=== PATIENT | female | born 1965 | race Asian ===

== ENCOUNTER 2016-06-03 07:22 | Emergency (ER) | payer OTHER ==
--- NOTE | 2016-06-03 07:56 | ED NURSING NOTES ---
Clinical Report - Nurses [facility] [address] [place] [address] 06/03/2016 7:25 Patient: SHEILA PABLO TRIAGE Triage time 07:34 Jun 03 2016. Acuity: LEVEL 3. Chief Complaint: REDNESS and PAIN TO LEFT EYE. KUMAR COMA SCORE: Kumar Coma Scale: 15- eyes open spontaneously (4); best verbal response- oriented x 4 (5); best motor response- obeys commands (6). --07:40 Pranav Herrera R.N. 07:34 06/03/16. BP: 151/89. HR: 64. RR: 18. O2 saturation: 99%. Temp: 98.5 F. Pain level now 7/10. --07:40 Pranav Herrera R.N. Weight: 60.7 kg stated. Height/Length: 60 inches Per Patient. BMI: 26.1. --07:38 Pranav Herrera R.N. Medications Claritin Oral 10 mg, daily. Vitamin D Oral (Capsule 2000 unit) 1 capsule, daily. --07:36 Pranav Herrera R.N. Allergies No Known Drug Allergy. --07:36 Pranav Herrera R.N. History Arrived by private vehicle. Historian: patient. Accompanied by family. Primary physician (). This is a recurrent problem and onset was abrupt. Symptoms are constant and still present (started last week got better but worse last night). She did not sustain an injury. ( Was seen last week for eye irritation given artificial tears but the pain is increased today.). She has had eye discomfort and eye irritation. No eye discharge, photophobia, blurred vision or decreased vision. 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 PAST MEDICAL HX: Hypertension. No history of diabetes mellitus. No history of glaucoma or prior eye injury. Immunizations: up-to-date. Denies current . SOCIAL HX: Never smoker. Occasional alcohol use. No drug use. SELF HARM ASSESSMENT: A self harm assessment was performed. The patient answered "no" to the question "Have you recently felt down, depressed, or hopeless?" and "Do you have thoughts of harming or killing yourself?". FALL RISK ASSESSMENT: Fall risk assessment completed. No fall risk identified. NUTRITIONAL RISK ASSESSMENT: The nutritional risk assessment revealed no deficiencies. FUNCTIONAL ASSESSMENT: Functional assessment: no impairments noted. LEARNING NEEDS ASSESSMENT: The learning needs assessment revealed no barriers. ABUSE ASSESSMENT: Abuse assessment: (yes) The patient was asked "Do you feel safe in your home?". SKIN INTEGRITY ASSESSMENT: Skin integrity risk assessment completed. No skin integrity risk identified. --07:40 Pranav Herrera R.N. PROBLEMS: Corneal Abrasion. Immunizations. --07:36 Praanv Herrera R.N. ADDITIONAL SURGERIES: no known surgeries. Interventions ID band on patient. --07:40 Pranav Herrera R.N. PHYSICAL ASSESSMENT Ambulatory to room. ( Getting over a cold still has lingering sinus tenderness and drainage.). GENERAL / NEURO / PSYCH: Alert. Appears in no acute distress. Appears in pain. HEENT: No facial asymmetry noted. Visual acuity with corrective lenses: left eye 20/20; right eye 20/20. Patient wears corrective lenses. Right ear within normal limits. Left ear within normal limits. Mouth inspection within normal limits. Pharynx within normal limits. RESPIRATORY: Respirations not labored. CVS: Capillary refill less than 2 seconds. SKIN: Skin is warm and dry. Normal skin turgor. --07:41 Pranav Herrera R.N. NURSING PROGRESS NOTES The plan of care for this patient has been created. Head of bed elevated (45). Reassurance given. Call light placed in reach. Side rails up x 1. Bed placed in lowest position. Brakes of bed on. --07:41 Pranav Herrera R.N. DISPOSITION / DISCHARGE Departure time: Jun 03 2016. Condition at departure: unchanged. No learning barriers present. Discharge instructions provided and reviewed with the patient. Reviewed warnings. Reviewed medication(s). Treatments reviewed. Reviewed referrals. Patient verbalized understanding. Written instructions provided in Lithuanian. The patient was discharged home and accompanied by spouse. She left the Emergency Department ambulatory and via private vehicle. Spouse driving. --:59 Pranav Herrera R.N. 07:57 06/03/16. BP: 114/81. HR: 86. RR: 18. O2 saturation: 99%. Temp: 98.5 F. Pain level now 11/07. --07:59 Pranav Herrera R.N. Locked/Released at 06/03/2016 19:11 by Pranav Herrera R.N.
--- NOTE | 2016-06-03 07:56 | ED CLINICAL REPORT ---
Clinical Report - Physicians/Mid Levels [facility] [address] [place] [address] 06/03/2016 7:25 Patient: SHEILA PABLO Time Seen: 07:31; initial patient contact. Arrived- By private vehicle. Historian- patient. HISTORY OF PRESENT ILLNESS Chief Complaint: EYE PAIN, REDNESS and IRRITATION. This started last night, involves the left eye, is characterized as moderate in severity and has been constant and is still present. The patient did not sustain an injury. Not injured from contact lenses. No direct trauma to the eyes. No chemical exposure, suspected foreign body in eye or UV light exposure. Eye pain, redness, irritation, discharge and itching. Eyelid swelling. Photophobia. No blurred vision, double vision, decreased vision or loss of vision. REVIEW OF SYSTEMS No fever, sore throat or cough. All systems otherwise negative, except as recorded above. PAST HISTORY PAST MEDICAL HX: Hypertension, corneal abrasion. No history of diabetes mellitus. No history of glaucoma or prior eye injury. Additional Surgeries: no known surgeries. Medications: Claritin Oral 10 mg, daily. Vitamin D Oral (Capsule 2000 unit) 1 capsule, daily. Allergies: No Known Drug Allergy. SOCIAL HISTORY Never smoker. Occasional alcohol use. No drug use. ADDITIONAL NOTES The nursing notes have been reviewed with agreement regarding the chief complaint, PMH and patient medications and allergies. PHYSICAL EXAM Vital Signs: 06/03/2016 07:34 BP: 151/89. HR: 64. RR: 18. O2 saturation: 99%. Temp: 98.5 F. Have been reviewed. Hypertensive. Heart rate normal. Respiratory rate normal. Temperature normal. Oxygen saturation normal. Appearance: Alert. Oriented X3. No acute distress. Eyes: Visual acuity noted- see nurse's notes. Left eyelid everted for examination. Eyelids appear normal to inspection. EOMs intact. Rt Eye: Right eye exam normal. Lt Eye: Injected conjunctiva. Slight exudate present. No foreign body under the eyelid. No injury to the eyelids. No conjunctival foreign body or corneal foreign body. Neck: No lymphadenopathy. Skin: No rash. Neuro: Oriented X 3. PROGRESS AND PROCEDURES Disposition: Discharged home in good condition. Condition: good. CLINICAL IMPRESSION Acute mucopurulent and bacterial conjunctivitis of the left eye. INSTRUCTIONS Your Current Medications: CONTINUE TAKING THE FOLLOWING MEDICATIONS: Claritin Oral : 10 mg daily. Vitamin D Oral : Capsule 2000 unit, 1 capsule daily. Prescription Medications: Polytrim ophthalmic solution: instill 1 drop into the affected eye every 3 hours while awake until symptoms resolve. Dispense ten (10) mL. No refill. Substitution is permissible. Follow-up: Screening today revealed the patient's blood pressure to be in the hypertensive range. The patient should follow up with a primary care provider for blood pressure management. (Electronically signed by Froilan Garrett Dr. 06/03/2016 8:04)
--- NOTE | 2016-06-03 07:56 | ED NURSING NOTES ---
Clinical Report - Nurses [facility] [address] [place] [address] 06/03/2016 7:25 Patient: SHEILA PABLO TRIAGE Triage time 07:34 Jun 03 2016. Acuity: LEVEL 3. Chief Complaint: REDNESS and PAIN TO LEFT EYE. KUMAR COMA SCORE: Kumar Coma Scale: 15- eyes open spontaneously (4); best verbal response- oriented x 4 (5); best motor response- obeys commands (6). --07:40 Pranav Herrera R.N. 07:34 06/03/16. BP: 151/89. HR: 64. RR: 18. O2 saturation: 99%. Temp: 98.5 F. Pain level now 7/10. --07:40 Pranav Herrera R.N. Weight: 60.7 kg stated. Height/Length: 60 inches Per Patient. BMI: 26.1. --07:38 Pranav Herrera R.N. Medications Claritin Oral 10 mg, daily. Vitamin D Oral (Capsule 2000 unit) 1 capsule, daily. --07:36 Pranav Herrera R.N. Allergies No Known Drug Allergy. --07:36 Pranav Herrera R.N. History Arrived by private vehicle. Historian: patient. Accompanied by family. Primary physician (). This is a recurrent problem and onset was abrupt. Symptoms are constant and still present (started last week got better but worse last night). She did not sustain an injury. ( Was seen last week for eye irritation given artificial tears but the pain is increased today.). She has had eye discomfort and eye irritation. No eye discharge, photophobia, blurred vision or decreased vision. 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 PAST MEDICAL HX: Hypertension. No history of diabetes mellitus. No history of glaucoma or prior eye injury. Immunizations: up-to-date. Denies current . SOCIAL HX: Never smoker. Occasional alcohol use. No drug use. SELF HARM ASSESSMENT: A self harm assessment was performed. The patient answered "no" to the question "Have you recently felt down, depressed, or hopeless?" and "Do you have thoughts of harming or killing yourself?". FALL RISK ASSESSMENT: Fall risk assessment completed. No fall risk identified. NUTRITIONAL RISK ASSESSMENT: The nutritional risk assessment revealed no deficiencies. FUNCTIONAL ASSESSMENT: Functional assessment: no impairments noted. LEARNING NEEDS ASSESSMENT: The learning needs assessment revealed no barriers. ABUSE ASSESSMENT: Abuse assessment: (yes) The patient was asked "Do you feel safe in your home?". SKIN INTEGRITY ASSESSMENT: Skin integrity risk assessment completed. No skin integrity risk identified. --07:40 Pranav Herrera R.N. PROBLEMS: Corneal Abrasion. Immunizations. --07:36 Pranav Herrera R.N. ADDITIONAL SURGERIES: no known surgeries. Interventions ID band on patient. --07:40 Pranav Herrera R.N. PHYSICAL ASSESSMENT Ambulatory to room. ( Getting over a cold still has lingering sinus tenderness and drainage.). GENERAL / NEURO / PSYCH: Alert. Appears in no acute distress. Appears in pain. HEENT: No facial asymmetry noted. Visual acuity with corrective lenses: left eye 20/20; right eye 20/20. Patient wears corrective lenses. Right ear within normal limits. Left ear within normal limits. Mouth inspection within normal limits. Pharynx within normal limits. RESPIRATORY: Respirations not labored. CVS: Capillary refill less than 2 seconds. SKIN: Skin is warm and dry. Normal skin turgor. --07:41 Pranav Herrera R.N. NURSING PROGRESS NOTES The plan of care for this patient has been created. Head of bed elevated (45). Reassurance given. Call light placed in reach. Side rails up x 1. Bed placed in lowest position. Brakes of bed on. --07:41 Pranav Herrera R.N. DISPOSITION / DISCHARGE Departure time: Jun 03 2016. Condition at departure: unchanged. No learning barriers present. Discharge instructions provided and reviewed with the patient. Reviewed warnings. Reviewed medication(s). Treatments reviewed. Reviewed referrals. Patient verbalized understanding. Written instructions provided in Jamaican. The patient was discharged home and accompanied by spouse. She left the Emergency Department ambulatory and via private vehicle. Spouse driving. --:59 Pranav Herrera R.N. 07:57 06/03/16. BP: 114/81. HR: 86. RR: 18. O2 saturation: 99%. Temp: 98.5 F. Pain level now 11/07. --07:59 Pranav Herrera R.N. Locked/Released at 06/03/2016 19:11 by Pranav Herrera R.N.
--- NOTE | 2016-06-03 07:56 | ED CLINICAL REPORT ---
Clinical Report - Physicians/Mid Levels [facility] [address] [place] [address] 06/03/2016 7:25 Patient: SHEILA PABLO Time Seen: 07:31; initial patient contact. Arrived- By private vehicle. Historian- patient. HISTORY OF PRESENT ILLNESS Chief Complaint: EYE PAIN, REDNESS and IRRITATION. This started last night, involves the left eye, is characterized as moderate in severity and has been constant and is still present. The patient did not sustain an injury. Not injured from contact lenses. No direct trauma to the eyes. No chemical exposure, suspected foreign body in eye or UV light exposure. Eye pain, redness, irritation, discharge and itching. Eyelid swelling. Photophobia. No blurred vision, double vision, decreased vision or loss of vision. REVIEW OF SYSTEMS No fever, sore throat or cough. All systems otherwise negative, except as recorded above. PAST HISTORY PAST MEDICAL HX: Hypertension, corneal abrasion. No history of diabetes mellitus. No history of glaucoma or prior eye injury. Additional Surgeries: no known surgeries. Medications: Claritin Oral 10 mg, daily. Vitamin D Oral (Capsule 2000 unit) 1 capsule, daily. Allergies: No Known Drug Allergy. SOCIAL HISTORY Never smoker. Occasional alcohol use. No drug use. ADDITIONAL NOTES The nursing notes have been reviewed with agreement regarding the chief complaint, PMH and patient medications and allergies. PHYSICAL EXAM Vital Signs: 06/03/2016 07:34 BP: 151/89. HR: 64. RR: 18. O2 saturation: 99%. Temp: 98.5 F. Have been reviewed. Hypertensive. Heart rate normal. Respiratory rate normal. Temperature normal. Oxygen saturation normal. Appearance: Alert. Oriented X3. No acute distress. Eyes: Visual acuity noted- see nurse's notes. Left eyelid everted for examination. Eyelids appear normal to inspection. EOMs intact. Rt Eye: Right eye exam normal. Lt Eye: Injected conjunctiva. Slight exudate present. No foreign body under the eyelid. No injury to the eyelids. No conjunctival foreign body or corneal foreign body. Neck: No lymphadenopathy. Skin: No rash. Neuro: Oriented X 3. PROGRESS AND PROCEDURES Disposition: Discharged home in good condition. Condition: good. CLINICAL IMPRESSION Acute mucopurulent and bacterial conjunctivitis of the left eye. INSTRUCTIONS Your Current Medications: CONTINUE TAKING THE FOLLOWING MEDICATIONS: Claritin Oral : 10 mg daily. Vitamin D Oral : Capsule 2000 unit, 1 capsule daily. Prescription Medications: Polytrim ophthalmic solution: instill 1 drop into the affected eye every 3 hours while awake until symptoms resolve. Dispense ten (10) mL. No refill. Substitution is permissible. Follow-up: Screening today revealed the patient's blood pressure to be in the hypertensive range. The patient should follow up with a primary care provider for blood pressure management. (Electronically signed by Froilan Garrett Dr. 06/03/2016 8:04)
--- NOTE | 2016-06-03 19:11 | ED MED RECONCILIATION SUMMARY ---
Patient: SHEILA PABLO Medication Reconciliation Report [facility] VisitID: [id number] [address] [place] [address] 50y, F Registration Date/Time: 06/03/2016 Weight: 60.7 kg Height/Length: 60 in. BMI: 26.1 ALLERGIES: No Known Drug Allergy The patient's Home Medications are listed below: CONTINUE TAKING THE FOLLOWING MEDICATIONS: Claritin Oral 10 mg, daily Vitamin D Oral (2000 unit) 1 capsule, daily The source(s) of the original Home Medication information: Not obtained. The following Medications were given to the patient in the Emergency Department: None. The following Medications were prescribed to the patient: Polytrim ophthalmic solution: instill 1 drop into the affected eye every 3 hours while awake until symptoms resolve. Dispense ten (10) mL. No refill. Substitution is permissible. -- Froilan Garrett Dr.
--- NOTE | 2016-06-03 19:11 | ED MAR SUMMARY ---
..... Medication Administration Record [facility] [address] [place] [place], [place] [id number] Patient: SHEILA PABLO Norbert Visit ID: [id number] 50y, F Weight: 60.7 kg Height/Length: 60 in BMI: 26.1 ALLERGIES: No Known Drug Allergy
--- NOTE | 2016-06-03 19:11 | ED DISCHARGE INSTRUCTIONS ---
Patient: SHEILA PABLO General Instructions [facility] VisitID: [id number] [place] [address] 50y, F Registration Date/Time: 06/03/2016 INSTRUCTIONS Your Current Medications: CONTINUE TAKING THE FOLLOWING MEDICATIONS: Claritin Oral : 10 mg daily. Vitamin D Oral : Capsule 2000 unit, 1 capsule daily. Prescription Medications: Polytrim ophthalmic solution: instill 1 drop into the affected eye every 3 hours while awake until symptoms resolve. Dispense ten (10) mL. No refill. Substitution is permissible. Follow-up: Screening today revealed the patient's blood pressure to be in the hypertensive range. The patient should follow up with a primary care provider for blood pressure management. ADDITIONAL INFORMATION Conjunctivitis, Bacterial You have a bacterial infection in the membranes covering the eye. The most common symptoms include a thick discharge from the eye, swollen eyelids, redness, eyelids sticking together upon awakening, and a gritty or scratchy feeling in the eye. The infection takes about 7-10 days to resolve with treatment. Home Care: Use prescribed eyedrops or ointment as directed to treat the infection. Apply a warm pack (towel soaked in warm water) to the affected eye 3-4 times a day. Do this just before applying medicine to the eye. Use a warm, wet cloth to wipe away crusting of the eyelids in the morning. This is caused by mucus drainage during the night. You may also use saline irrigating solution or artificial tears to rinse away mucus inside the eye. Do not put a patch over the eye. Wash your hands before and after touching the infected eye. This is to prevent spreading the infection to the other eye, and to other people. Do not share your towels or washcloths with others. You may use acetaminophen (Tylenol) or ibuprofen (Motrin, Advil) to control pain, unless another medicine was prescribed. [NOTE: If you have chronic liver or kidney disease or ever had a stomach ulcer or GI bleeding, talk with your doctor before using these medicines.] Do not wear contact lenses until your eyes have healed and all symptoms are gone. Follow Up with your doctor or this facility as directed, or if there has not been improvement within 5 days. Get Prompt Medical Attention if any of the following occur: Worsening vision Increasing pain in the eye Increasing swelling or redness of the eyelid Redness spreading around the eye Trimethoprim Sulfate, Polymyxin B Sulfate Eye drops, solution What is this medicine? POLYMYXIN B and TRIMETHOPRIM (kehinde i MIX in B and trye METH oh prim) eye drops treat certain eye infections caused by bacteria. How should I use this medicine? This medicine is used in the eye. Follow the directions on the prescription label. Wash your hands before and after use. Tilt your head back slightly. Pull your lower eyelid down gently to form a pouch. Do not touch the tip of the dropper to your eye, fingertips, or other surface. Squeeze the prescribed number of drops into the pouch. Close the eye gently to spread the drops. Use your medicine at regular intervals. Do not take your medicine more often than directed. Use all of your medicine as directed even if you think your are better. Do not skip doses or stop your medicine early. Talk to your e commerce marketing manager regarding the use of this medicine in children. While this drug may be prescribed for children and infants for selected conditions, precautions do apply. What side effects may I notice from receiving this medicine? Side effects that you should report to your doctor or health child day care center worker as soon as possible: burning, stinging, or swelling change in vision or blurred vision that will not go away eye pain itching and redness rash Side effects that usually do not require medical attention (report to your doctor or health child day care center worker if they continue or are bothersome): temporary blurred vision after applying temporary watering or stinging What may interact with this medicine? Interactions are not expected. Do not use any other eye products without advice of your doctor or health child day care center worker. What if I miss a dose? If you miss a dose, use it as soon as you can. If it is almost time for your next dose, use only that dose. Do not use double or extra doses. Where should I keep my medicine? Keep out of the reach of children. Store at room temperature 15 to 25 degrees C (59 to 77 degrees F). Protect from light. To prevent the spread of infection, it is best to throw away any unused eye drops after you finish the course of treatment. Throw away any unused medicine after the expiration date. What should I tell my health care provider before I take this medicine? They need to know if you have any of these conditions: wear contact lenses an unusual or allergic reaction to polymyxin B, trimethoprim, other medicines, foods, dyes, or preservatives or trying to get breast-feeding What should I watch for while using this medicine? Check with your doctor or health child day care center worker if your condition does not get better after 5 days, or if it gets worse. If you wear contact lenses, ask when you can use your lenses again. A burning or stinging reaction that does not go away may mean you are allergic to this product. Stop use and call your doctor or health child day care center worker. To prevent the spread of infection, do not share eye products or other personal items with anyone else. You have been given the following additional information: Conjunctivitis, Bacterial Trimethoprim Sulfate, Polymyxin B Sulfate Eye drops, solution (Electronically signed by Froilan Garrett Dr. 06/03/2016 8:04)
--- NOTE | 2016-06-03 19:11 | ED MAR SUMMARY ---
..... Medication Administration Record [facility] [address] [place], [place] [id number] Patient: SHEILA PABLO Norbert Visit ID: [id number] 50y, F Weight: 60.7 kg Height/Length: 60 in BMI: 26.1 ALLERGIES: No Known Drug Allergy
--- NOTE | 2016-06-03 19:11 | ED DISCHARGE INSTRUCTIONS ---
Patient: SHEILA PABLO General Instructions [facility] VisitID: [id number] [place] [address] 50y, F Registration Date/Time: 06/03/2016 INSTRUCTIONS Your Current Medications: CONTINUE TAKING THE FOLLOWING MEDICATIONS: Claritin Oral : 10 mg daily. Vitamin D Oral : Capsule 2000 unit, 1 capsule daily. Prescription Medications: Polytrim ophthalmic solution: instill 1 drop into the affected eye every 3 hours while awake until symptoms resolve. Dispense ten (10) mL. No refill. Substitution is permissible. Follow-up: Screening today revealed the patient's blood pressure to be in the hypertensive range. The patient should follow up with a primary care provider for blood pressure management. ADDITIONAL INFORMATION Conjunctivitis, Bacterial You have a bacterial infection in the membranes covering the eye. The most common symptoms include a thick discharge from the eye, swollen eyelids, redness, eyelids sticking together upon awakening, and a gritty or scratchy feeling in the eye. The infection takes about 7-10 days to resolve with treatment. Home Care: Use prescribed eyedrops or ointment as directed to treat the infection. Apply a warm pack (towel soaked in warm water) to the affected eye 3-4 times a day. Do this just before applying medicine to the eye. Use a warm, wet cloth to wipe away crusting of the eyelids in the morning. This is caused by mucus drainage during the night. You may also use saline irrigating solution or artificial tears to rinse away mucus inside the eye. Do not put a patch over the eye. Wash your hands before and after touching the infected eye. This is to prevent spreading the infection to the other eye, and to other people. Do not share your towels or washcloths with others. You may use acetaminophen (Tylenol) or ibuprofen (Motrin, Advil) to control pain, unless another medicine was prescribed. [NOTE: If you have chronic liver or kidney disease or ever had a stomach ulcer or GI bleeding, talk with your doctor before using these medicines.] Do not wear contact lenses until your eyes have healed and all symptoms are gone. Follow Up with your doctor or this facility as directed, or if there has not been improvement within 5 days. Get Prompt Medical Attention if any of the following occur: Worsening vision Increasing pain in the eye Increasing swelling or redness of the eyelid Redness spreading around the eye Trimethoprim Sulfate, Polymyxin B Sulfate Eye drops, solution What is this medicine? POLYMYXIN B and TRIMETHOPRIM (kehinde i MIX in B and trye METH oh prim) eye drops treat certain eye infections caused by bacteria. How should I use this medicine? This medicine is used in the eye. Follow the directions on the prescription label. Wash your hands before and after use. Tilt your head back slightly. Pull your lower eyelid down gently to form a pouch. Do not touch the tip of the dropper to your eye, fingertips, or other surface. Squeeze the prescribed number of drops into the pouch. Close the eye gently to spread the drops. Use your medicine at regular intervals. Do not take your medicine more often than directed. Use all of your medicine as directed even if you think your are better. Do not skip doses or stop your medicine early. Talk to your rigging man regarding the use of this medicine in children. While this drug may be prescribed for children and infants for selected conditions, precautions do apply. What side effects may I notice from receiving this medicine? Side effects that you should report to your doctor or health summer child caregiver as soon as possible: burning, stinging, or swelling change in vision or blurred vision that will not go away eye pain itching and redness rash Side effects that usually do not require medical attention (report to your doctor or health summer child caregiver if they continue or are bothersome): temporary blurred vision after applying temporary watering or stinging What may interact with this medicine? Interactions are not expected. Do not use any other eye products without advice of your doctor or health summer child caregiver. What if I miss a dose? If you miss a dose, use it as soon as you can. If it is almost time for your next dose, use only that dose. Do not use double or extra doses. Where should I keep my medicine? Keep out of the reach of children. Store at room temperature 15 to 25 degrees C (59 to 77 degrees F). Protect from light. To prevent the spread of infection, it is best to throw away any unused eye drops after you finish the course of treatment. Throw away any unused medicine after the expiration date. What should I tell my health care provider before I take this medicine? They need to know if you have any of these conditions: wear contact lenses an unusual or allergic reaction to polymyxin B, trimethoprim, other medicines, foods, dyes, or preservatives or trying to get breast-feeding What should I watch for while using this medicine? Check with your doctor or health summer child caregiver if your condition does not get better after 5 days, or if it gets worse. If you wear contact lenses, ask when you can use your lenses again. A burning or stinging reaction that does not go away may mean you are allergic to this product. Stop use and call your doctor or health summer child caregiver. To prevent the spread of infection, do not share eye products or other personal items with anyone else. You have been given the following additional information: Conjunctivitis, Bacterial Trimethoprim Sulfate, Polymyxin B Sulfate Eye drops, solution (Electronically signed by Froilan Garrett Dr. 06/03/2016 8:04)
--- NOTE | 2016-06-03 19:11 | ED MED RECONCILIATION SUMMARY ---
Patient: SHEILA PABLO Medication Reconciliation Report [facility] VisitID: [id number] [address] [place] [address] 50y, F Registration Date/Time: 06/03/2016 Weight: 60.7 kg Height/Length: 60 in. BMI: 26.1 ALLERGIES: No Known Drug Allergy The patient's Home Medications are listed below: CONTINUE TAKING THE FOLLOWING MEDICATIONS: Claritin Oral 10 mg, daily Vitamin D Oral (2000 unit) 1 capsule, daily The source(s) of the original Home Medication information: Not obtained. The following Medications were given to the patient in the Emergency Department: None. The following Medications were prescribed to the patient: Polytrim ophthalmic solution: instill 1 drop into the affected eye every 3 hours while awake until symptoms resolve. Dispense ten (10) mL. No refill. Substitution is permissible. -- Froilan Garrett Dr.
== END 2016-06-03 08:00 | disposition home or self-care (01) ==
LOC: ED SRH 07:22
DX: H10.022 Other mucopurulent conjunctivitis, left eye (principal); B96.89 Other specified bacterial agents as the cause of diseases classified elsewhere; I10 Essential (primary) hypertension

== ENCOUNTER 2016-07-12 07:10 | Emergency (ER) | payer OTHER ==
--- NOTE | 2016-07-12 08:31 | ED CLINICAL REPORT ---
Clinical Report - Physicians/Mid Levels [facility] [address] [place] [address] 07/12/2016 7:12 Patient: SHEILA PABLO Time Seen: 08:24 Jul 12 2016. Arrived- By private vehicle. Historian- patient. CPT: ER phys charges level 3 (#[id number]). HISTORY OF PRESENT ILLNESS Chief Complaint: EYE PAIN. 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 The patient did not sustain an injury. This occurred at home. Eye pain, discomfort and irritation. No eye discharge, eye matting or decreased vision. REVIEW OF SYSTEMS No fever, sore throat or cough. All systems otherwise negative, except as recorded above. PAST HISTORY See nurses notes. Medications: Calcium + D3 Oral. Lisinopril Oral. Thyroid Oral. Allergies: No Known Drug Allergy. SOCIAL HISTORY Never smoker. Occasional alcohol use. No drug use. ADDITIONAL NOTES The nursing notes have been reviewed. PHYSICAL EXAM Vital Signs: 07/12/2016 07:29 BP: 130/80. HR: 74. RR: 12. O2 saturation: 98%. Temp: 97.6 F. Pain level now: 5/10. Appearance: Alert. HEENT: Ears normal. Nose normal. Pharynx normal. Head appears normal to external inspection. Rt Eye: Right eye exam normal. Moderate eyelid edema and erythema. Internal stye with erythema and swelling. No foreign body under the eyelid. No injury to the eyelids. Eyes: Visual acuity normal bilaterally. Conjunctivae and sclerae appear normal to inspection. Corneas appear normal to inspection. Pupils equal, round and reactive to light. Accommodation normal. EOMs intact. Right upper eyelid: mild erythema, tenderness and swelling of the middle of the upper lid. No abrasion, ecchymosis or foreign body. Anterior chambers clear. Anterior chambers of normal depth. Neck: Neck supple. Normal inspection. CVS: Normal heart rate and rhythm. Heart sounds normal. Respiratory: No respiratory distress. Breath sounds normal. Abdomen: Nontender. Skin: No rash. Neuro: Oriented X 3. Mood/affect normal. No motor deficit. No sensory deficit. Reflexes normal. CLINICAL IMPRESSION Internal sty with cellulitis right upper eye lid. INSTRUCTIONS Apply moist heat for 15-20 minutes three times a day for one weeks until better. Warnings: Further evaluation is necessary. GENERAL WARNINGS: Return or contact your physician immediately if your condition worsens or changes unexpectedly, if not improving as expected, or if other problems arise. Your Current Medications: CONTINUE TAKING THE FOLLOWING MEDICATIONS: Calcium + D3 Oral. Lisinopril Oral. Thyroid Oral. Prescription Medications: Garamycin ophthalmic solution 0.3% : Instill 1 drop into affected eye every 4 hours while awake for 1 week. Dispense five (5) mL. No refills. Substitution is permissible. Keflex 500 mg: take 1 capsule orally every 6 hours for 7 days. No refills. Substitution is permissible. Septra DS 800 mg / 160 mg: take 1 tablet orally every 12 hours for 7 days. Dispense fourteen (14). No refills. Substitution is permissible. Follow-up: Return to the emergency department if worse. Follow up with your doctor in three if not better. Understanding of the discharge instructions verbalized by patient. (Electronically signed by John Becker MD 07/14/2016 10:22)
--- NOTE | 2016-07-12 08:31 | ED CLINICAL REPORT ---
Clinical Report - Physicians/Mid Levels [facility] [address] [place] [address] 07/12/2016 7:12 Patient: SHEILA PABLO Time Seen: 08:24 Jul 12 2016. Arrived- By private vehicle. Historian- patient. CPT: ER phys charges level 3 (#[id number]). HISTORY OF PRESENT ILLNESS Chief Complaint: EYE PAIN. 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 The patient did not sustain an injury. This occurred at home. Eye pain, discomfort and irritation. No eye discharge, eye matting or decreased vision. REVIEW OF SYSTEMS No fever, sore throat or cough. All systems otherwise negative, except as recorded above. PAST HISTORY See nurses notes. Medications: Calcium + D3 Oral. Lisinopril Oral. Thyroid Oral. Allergies: No Known Drug Allergy. SOCIAL HISTORY Never smoker. Occasional alcohol use. No drug use. ADDITIONAL NOTES The nursing notes have been reviewed. PHYSICAL EXAM Vital Signs: 07/12/2016 07:29 BP: 130/80. HR: 74. RR: 12. O2 saturation: 98%. Temp: 97.6 F. Pain level now: 5/10. Appearance: Alert. HEENT: Ears normal. Nose normal. Pharynx normal. Head appears normal to external inspection. Rt Eye: Right eye exam normal. Moderate eyelid edema and erythema. Internal stye with erythema and swelling. No foreign body under the eyelid. No injury to the eyelids. Eyes: Visual acuity normal bilaterally. Conjunctivae and sclerae appear normal to inspection. Corneas appear normal to inspection. Pupils equal, round and reactive to light. Accommodation normal. EOMs intact. Right upper eyelid: mild erythema, tenderness and swelling of the middle of the upper lid. No abrasion, ecchymosis or foreign body. Anterior chambers clear. Anterior chambers of normal depth. Neck: Neck supple. Normal inspection. CVS: Normal heart rate and rhythm. Heart sounds normal. Respiratory: No respiratory distress. Breath sounds normal. Abdomen: Nontender. Skin: No rash. Neuro: Oriented X 3. Mood/affect normal. No motor deficit. No sensory deficit. Reflexes normal. CLINICAL IMPRESSION Internal sty with cellulitis right upper eye lid. INSTRUCTIONS Apply moist heat for 15-20 minutes three times a day for one weeks until better. Warnings: Further evaluation is necessary. GENERAL WARNINGS: Return or contact your physician immediately if your condition worsens or changes unexpectedly, if not improving as expected, or if other problems arise. Your Current Medications: CONTINUE TAKING THE FOLLOWING MEDICATIONS: Calcium + D3 Oral. Lisinopril Oral. Thyroid Oral. Prescription Medications: Garamycin ophthalmic solution 0.3% : Instill 1 drop into affected eye every 4 hours while awake for 1 week. Dispense five (5) mL. No refills. Substitution is permissible. Keflex 500 mg: take 1 capsule orally every 6 hours for 7 days. No refills. Substitution is permissible. Septra DS 800 mg / 160 mg: take 1 tablet orally every 12 hours for 7 days. Dispense fourteen (14). No refills. Substitution is permissible. Follow-up: Return to the emergency department if worse. Follow up with your doctor in three if not better. Understanding of the discharge instructions verbalized by patient. (Electronically signed by John Becker MD 07/14/2016 10:22)
--- NOTE | 2016-07-12 08:31 | ED NURSING NOTES ---
Clinical Report - Nurses [facility] [address] [place] [address] 07/12/2016 7:12 Patient: SHEILA PABLO TRIAGE Acuity: LEVEL 4. Chief Complaint: REDNESS and PAIN TO RIGHT EYE. Alert. No acute distress. SEPSIS SCREEN: Sepsis Screen. Negative (no infection suspected/documented). --07:34 Renuka iGbbons R.N. 07:29 07/12/16. BP: 130/80. HR: 74. RR: 12. O2 saturation: 98% on room air. Temp: 97.6 F (oral). Pain level now: 09/07. --07:34 Renuka Gibbons R.N. Weight: 61.2 kg stated. Height/Length: 59 inches. BMI: 27.3. --07:34 Renuka Gibbons R.N. Medications Thyroid Oral. --07:32 Renuka Gibbons R.N. Lisinopril Oral. --07:32 Renuka Gibbons R.N. Calcium + D3 Oral. --07:33 Renuka Gibbons R.N. Medication/allergy information source: the patient. --07:34 Renuka Gibbons R.N. Allergies No Known Drug Allergy. --07:33 Renuka Gibbons R.N. History Arrived by private vehicle. Historian: patient. Unaccompanied. Primary physician (NONE). Onset. (2 days ago). 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 SOCIAL HX: Never smoker. Occasional alcohol use. No drug use. FALL RISK ASSESSMENT: Fall risk assessment completed. No fall risk identified. NUTRITIONAL RISK ASSESSMENT: The nutritional risk assessment revealed no deficiencies. FUNCTIONAL ASSESSMENT: Functional assessment: no impairments noted. LEARNING NEEDS ASSESSMENT: The learning needs assessment revealed no barriers. SKIN INTEGRITY ASSESSMENT: Skin integrity risk assessment completed. No skin integrity risk identified. --07:34 Renuka Gibbons R.N. PROBLEMS: Conjunctivitis. Hypertension. Corneal Abrasion. Immunizations. --07:33 Renuka Gibbons R.N. Assessment GENERAL / NEURO / PSYCH: Alert. Oriented X 4. Appears in no acute distress. Patient appears calm and cooperative. RESPIRATORY: Respirations not labored. CVS: Capillary refill less than 2 seconds. GI / : Abdomen soft and nontender. SKIN: Mucous membranes are pink. Skin is warm and dry. --07:34 Renuka Gibbons R.N. Interventions ID band on patient. To treatment room. --07:34 Renuka Gibbons R.N. PHYSICAL ASSESSMENT Ambulatory to room. GENERAL / NEURO / PSYCH: Alert. Appears in no acute distress. HEENT: No facial asymmetry noted. Pupils equal, round and reactive to light. Conjunctival findings present: redness of the right conjunctiva (right upper eyelind swelling and redness). RESPIRATORY: Respirations not labored. SKIN: Skin is warm and dry. Normal skin turgor. --07:35 Renuka Gibbons R.N. NURSING PROGRESS NOTES 07:35 07/12/16. Two patient identifiers checked. Call light placed in reach. Side rails up x 1. Bed placed in lowest position. Brakes of bed on. Patient ready for evaluation- chart flagged. --07:35 Renuka Gibbons R.N. DISPOSITION / DISCHARGE Departure time: 08:35 Jul 12 2016. Condition at departure: unchanged and stable. No learning barriers present. Discharge instructions provided and reviewed with the patient. Reviewed medication(s) side effects, precautions, dosing and course information. Prescription(s) given to the patient. Patient verbalized understanding. Written instructions provided in Afghan. The patient was discharged by the physician. She was discharged home. She left the Emergency Department ambulatory and via private vehicle. Patient driving. --08:46 Renuka Gibbons R.N. Locked/Released at 07/12/2016 8:46 by Renuka Gibbons R.N.
--- NOTE | 2016-07-12 08:31 | ED NURSING NOTES ---
Clinical Report - Nurses [facility] [address] [place] [address] 07/12/2016 7:12 Patient: SHEILA PABLO TRIAGE Acuity: LEVEL 4. Chief Complaint: REDNESS and PAIN TO RIGHT EYE. Alert. No acute distress. SEPSIS SCREEN: Sepsis Screen. Negative (no infection suspected/documented). --07:34 Renuka Gibbons R.N. 07:29 07/12/16. BP: 130/80. HR: 74. RR: 12. O2 saturation: 98% on room air. Temp: 97.6 F (oral). Pain level now: 09/07. --07:34 Renuka Gibbons R.N. Weight: 61.2 kg stated. Height/Length: 59 inches. BMI: 27.3. --07:34 Renuka Gibbons R.N. Medications Thyroid Oral. --07:32 Renuka Gibbons R.N. Lisinopril Oral. --07:32 Renuka Gibbons R.N. Calcium + D3 Oral. --07:33 Renuka Gibbons R.N. Medication/allergy information source: the patient. --07:34 Renuka Gibbons R.N. Allergies No Known Drug Allergy. --07:33 Renuka Gibbons R.N. History Arrived by private vehicle. Historian: patient. Unaccompanied. Primary physician (NONE). Onset. (2 days ago). 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 SOCIAL HX: Never smoker. Occasional alcohol use. No drug use. FALL RISK ASSESSMENT: Fall risk assessment completed. No fall risk identified. NUTRITIONAL RISK ASSESSMENT: The nutritional risk assessment revealed no deficiencies. FUNCTIONAL ASSESSMENT: Functional assessment: no impairments noted. LEARNING NEEDS ASSESSMENT: The learning needs assessment revealed no barriers. SKIN INTEGRITY ASSESSMENT: Skin integrity risk assessment completed. No skin integrity risk identified. --07:34 Renuka Gibbons R.N. PROBLEMS: Conjunctivitis. Hypertension. Corneal Abrasion. Immunizations. --07:33 Renuka Gibbons R.N. Assessment GENERAL / NEURO / PSYCH: Alert. Oriented X 4. Appears in no acute distress. Patient appears calm and cooperative. RESPIRATORY: Respirations not labored. CVS: Capillary refill less than 2 seconds. GI / : Abdomen soft and nontender. SKIN: Mucous membranes are pink. Skin is warm and dry. --07:34 Renuka Gibbons R.N. Interventions ID band on patient. To treatment room. --07:34 Renuka Gibbons R.N. PHYSICAL ASSESSMENT Ambulatory to room. GENERAL / NEURO / PSYCH: Alert. Appears in no acute distress. HEENT: No facial asymmetry noted. Pupils equal, round and reactive to light. Conjunctival findings present: redness of the right conjunctiva (right upper eyelind swelling and redness). RESPIRATORY: Respirations not labored. SKIN: Skin is warm and dry. Normal skin turgor. --07:35 Renuka Gibbons R.N. NURSING PROGRESS NOTES 07:35 07/12/16. Two patient identifiers checked. Call light placed in reach. Side rails up x 1. Bed placed in lowest position. Brakes of bed on. Patient ready for evaluation- chart flagged. --07:35 Renuka Gibbons R.N. DISPOSITION / DISCHARGE Departure time: 08:35 Jul 12 2016. Condition at departure: unchanged and stable. No learning barriers present. Discharge instructions provided and reviewed with the patient. Reviewed medication(s) side effects, precautions, dosing and course information. Prescription(s) given to the patient. Patient verbalized understanding. Written instructions provided in Micronesian. The patient was discharged by the physician. She was discharged home. She left the Emergency Department ambulatory and via private vehicle. Patient driving. --08:46 Renuka Gibbons R.N. Locked/Released at 07/12/2016 8:46 by Renuka Gibbons R.N.
--- NOTE | 2016-07-14 10:22 | ED MAR SUMMARY ---
..... Medication Administration Record [facility] [address] [place], [place] [id number] Patient: SHEILA PABLO Norbert Visit ID: [id number] 50y, F Weight: 61.2 kg Height/Length: 59 in BMI: 27.3 ALLERGIES: No Known Drug Allergy
--- NOTE | 2016-07-14 10:22 | ED MED RECONCILIATION SUMMARY ---
Patient: SHEILA PABLO Medication Reconciliation Report [facility] VisitID: [id number] [address] [place] [address] 50y, F Registration Date/Time: 07/12/2016 Weight: 61.2 kg Height/Length: 59 in. BMI: 27.3 ALLERGIES: No Known Drug Allergy The patient's Home Medications are listed below: CONTINUE TAKING THE FOLLOWING MEDICATIONS: Calcium + D3 Oral Lisinopril Oral Thyroid Oral The source(s) of the original Home Medication information: patient The following Medications were given to the patient in the Emergency Department: None. The following Medications were prescribed to the patient: Garamycin ophthalmic solution 0.3% : Instill 1 drop into affected eye every 4 hours while awake for 1 week. Dispense five (5) mL. No refills. Substitution is permissible. -- John Becker MD Keflex 500 mg: take 1 capsule orally every 6 hours for 7 days. No refills. Substitution is permissible. -- John Becker MD Septra DS 800 mg / 160 mg: take 1 tablet orally every 12 hours for 7 days. Dispense fourteen (14). No refills. Substitution is permissible. -- John Becker MD
--- NOTE | 2016-07-14 10:22 | ED DISCHARGE INSTRUCTIONS ---
Patient: SHEILA PABLO General Instructions [facility] VisitID: [id number] [address] [place] [address] 50y, F Registration Date/Time: 07/12/2016 Internal sty with cellulitis right upper eye lid. INSTRUCTIONS Apply moist heat for 15-20 minutes three times a day for one weeks until better. Warnings: Further evaluation is necessary. GENERAL WARNINGS: Return or contact your physician immediately if your condition worsens or changes unexpectedly, if not improving as expected, or if other problems arise. Your Current Medications: CONTINUE TAKING THE FOLLOWING MEDICATIONS: Calcium + D3 Oral. Lisinopril Oral. Thyroid Oral. Prescription Medications: Garamycin ophthalmic solution 0.3% : Instill 1 drop into affected eye every 4 hours while awake for 1 week. Dispense five (5) mL. No refills. Substitution is permissible. Keflex 500 mg: take 1 capsule orally every 6 hours for 7 days. No refills. Substitution is permissible. Septra DS 800 mg / 160 mg: take 1 tablet orally every 12 hours for 7 days. Dispense fourteen (14). No refills. Substitution is permissible. Follow-up: Return to the emergency department if worse. Follow up with your doctor in three if not better. Understanding of the discharge instructions verbalized by patient. (Electronically signed by John Becker MD 07/14/2016 10:22)
--- NOTE | 2016-07-14 10:22 | ED DISCHARGE INSTRUCTIONS ---
Patient: SHEILA PABLO General Instructions [facility] VisitID: [id number] [address] [place] [address] 50y, F Registration Date/Time: 07/12/2016 Internal sty with cellulitis right upper eye lid. INSTRUCTIONS Apply moist heat for 15-20 minutes three times a day for one weeks until better. Warnings: Further evaluation is necessary. GENERAL WARNINGS: Return or contact your physician immediately if your condition worsens or changes unexpectedly, if not improving as expected, or if other problems arise. Your Current Medications: CONTINUE TAKING THE FOLLOWING MEDICATIONS: Calcium + D3 Oral. Lisinopril Oral. Thyroid Oral. Prescription Medications: Garamycin ophthalmic solution 0.3% : Instill 1 drop into affected eye every 4 hours while awake for 1 week. Dispense five (5) mL. No refills. Substitution is permissible. Keflex 500 mg: take 1 capsule orally every 6 hours for 7 days. No refills. Substitution is permissible. Septra DS 800 mg / 160 mg: take 1 tablet orally every 12 hours for 7 days. Dispense fourteen (14). No refills. Substitution is permissible. Follow-up: Return to the emergency department if worse. Follow up with your doctor in three if not better. Understanding of the discharge instructions verbalized by patient. (Electronically signed by John Becker MD 07/14/2016 10:22)
--- NOTE | 2016-07-14 10:22 | ED MAR SUMMARY ---
..... Medication Administration Record [facility] [address] [place], [place] [id number] Patient: SHEILA PABLO Norbert Visit ID: [id number] 50y, F Weight: 61.2 kg Height/Length: 59 in BMI: 27.3 ALLERGIES: No Known Drug Allergy
--- NOTE | 2016-07-14 10:22 | ED MED RECONCILIATION SUMMARY ---
Patient: SHEILA PABLO Medication Reconciliation Report [facility] VisitID: [id number] [address] [place] [address] 50y, F Registration Date/Time: 07/12/2016 Weight: 61.2 kg Height/Length: 59 in. BMI: 27.3 ALLERGIES: No Known Drug Allergy The patient's Home Medications are listed below: CONTINUE TAKING THE FOLLOWING MEDICATIONS: Calcium + D3 Oral Lisinopril Oral Thyroid Oral The source(s) of the original Home Medication information: patient The following Medications were given to the patient in the Emergency Department: None. The following Medications were prescribed to the patient: Garamycin ophthalmic solution 0.3% : Instill 1 drop into affected eye every 4 hours while awake for 1 week. Dispense five (5) mL. No refills. Substitution is permissible. -- John Becker MD Keflex 500 mg: take 1 capsule orally every 6 hours for 7 days. No refills. Substitution is permissible. -- John Becker MD Septra DS 800 mg / 160 mg: take 1 tablet orally every 12 hours for 7 days. Dispense fourteen (14). No refills. Substitution is permissible. -- John Becker MD
== END 2016-07-12 08:35 | disposition home or self-care (01) ==
LOC: ED SRH 07:10
DX: H00.021 Hordeolum internum right upper eyelid (principal); I10 Essential (primary) hypertension; Z79.899 Other long term (current) drug therapy

== ENCOUNTER 2016-07-21 11:12 | Outpatient (CLI) | payer OTHER ==
--- NOTE | 2016-07-28 10:07 | DIAGNOSTIC IMAGING REPORT ---
PROCEDURE: MG BILATERAL SCREENING W/CAD INDICATION: SCREENING TECHNIQUE: Bilateral CC and MLO digital views. COMPARISON: Mammograms 06/24/2015, 05/12/2014 and 04/04/2013. FINDINGS: Computer-aided detection applied. Moderately dense. Scattered microcalcifications. No change. IMPRESSION: 1. Negative mammogram RESULT CODE: 1- Negative. A. A negative report should not delay biopsy if a dominant or clinically suspicious mass is present. 10-15% of cancers are not identified by x-ray. B. A negative report may reinforce clinical impression. C. Adenosis and dense breasts may obscure an underlying neoplasm. D. False positive reports average 6-10%. E.. A yearly screening mammogram is recommended. A reminder letter will be scheduled.
== END 2016-07-21 23:00 ==
LOC: MAM SRH 11:12
DX: Z12.31 Encounter for screening mammogram for malignant neoplasm of breast (principal)